=== PATIENT | male | born 1935 | race Hispanic/Latino ===

== ENCOUNTER 2016-11-14 09:18 | Day surgery (SDC) | payer MEDICARE ==
[2016-11-13 18:26] LABS: Hematocrit 23.6 % (35.5-45.6); Hemoglobin 7.9 gm/dl (11.8-15.2)
[2016-11-14] MEDS ORDERED: TYLENOL PO ONE (09:33)
[2016-11-14] MEDS ORDERED: NACL 0.9% 250ML 250 ML IV ONE (09:34)
[2016-11-14] MEDS ORDERED: FLUSH HEPARIN IV ONE ×2 (09:34→14:01)
[2016-11-14] MEDS ORDERED: BENADRYL PO ONE (09:34)
[2016-11-14 14:19] VITALS: BP 131/87
== END 2016-11-14 14:30 | disposition home or self-care (01) ==
LOC: OPU 09:18
PROVIDERS: ATTEND Internal Medicine Hematology
DX: D64.9 Anemia, unspecified (principal)
CPT/HCPCS: 36415; 36430; 85014; 85018; 86850; 86900; 86901; 86920; J1642; J7050; P9040